=== PATIENT | female | born 1995 | race Caucasian/White ===

== ENCOUNTER → 2020-03-24 | Outpatient (CLI) | payer BC ==
--- NOTE | 2020-03-24 14:05 | Diagnostic Imaging Report ---
Right knee MRI without contrast. History: Knee pain. Medial meniscus tear. Decreased range of motion. Pain not responding to conservative management. Instability. Comparison: None. Technique: Multiplanar multi-sequence MRI of the knee without contrast. Findings: Medial compartment: No meniscal tear, cartilage abnormality, or MCL tear. Lateral compartment: No meniscal tear or cartilage abnormality. The LCL complex is normal. Intercondylar notch: The ACL and PCL are intact. Patellofemoral compartment: Mild articular cartilage fraying and fissuring in the patellofemoral compartment. The patella is slightly laterally subluxed. There is a shallow trochlea. Extensor mechanism: The quadriceps and patellar tendons are normal. Other findings: There is a joint effusion and synovitis. There is no acute fracture, subluxation or avascular necrosis. IMPRESSION: No meniscal tear, collateral ligament tear or cruciate ligament tear. Mild articular cartilage fraying and fissuring in the patellofemoral compartment. The patella is slightly laterally subluxed. There is a shallow trochlea. Signed by: Dr. Vinicius Matthews M.D. on 03/24/2020 2:02 PM
== END ==
LOC: MRI 12:30
PROVIDERS: ATTEND Specialist
DX: S83.241A Other tear of medial meniscus, current injury, right knee, initial encounter (principal)